=== PATIENT | male | born 2000 | race African-American/Black ===

== ENCOUNTER → 2020-03-13 | Outpatient (CLI) | payer SELFPAY | LOC: M LABSMTC 08:23 | PROVIDERS: ATTEND Pediatrics | DX: Z20.828 Contact with and (suspected) exposure to other viral communicable diseases (principal) ==

== ENCOUNTER → 2020-03-27 | Outpatient (CLI) | payer SELFPAY | LOC: M LABSMTC 10:46 | PROVIDERS: ATTEND Pediatrics | DX: Z20.828 Contact with and (suspected) exposure to other viral communicable diseases (principal) ==